=== PATIENT | male | born 1995 | race Caucasian/White ===

== ENCOUNTER 2020-03-13 19:04 | Day surgery (SDC) | payer OTHER ==
--- NOTE | 2020-03-13 19:30 | EDM.PDOC ---
ED HPI GENERAL MEDICAL PROBLEM - General Chief Complaint: Abdominal Pain Stated Complaint: ABDOMINAL PAIN; BACK PAIN; VOMITING Time Seen by Provider: 03/13/20 19:10 Source of Information: Reports: Patient History Limitations: Reports: No Limitations - History of Present Illness INITIAL COMMENTS - FREE TEXT/NARRATIVE: Sarthak comes into [facility] ED with periumbilical crampy abdominal pain since this am, asociated with loss of appetite, emesis, and malaise. Pain seems to have migrated this evening into the back, but has remained persistent. There are no voiding sxs, no fevers or chills, and no BM today. Oral analgesics have been ineffective. - Related Data Allergies Allergy/AdvReac Type Severity Reaction Status Date / Time shrimp Allergy Swelling Verified 03/13/20 19:18 Home Meds: Home Meds Bismuth Subsalicylate [Pepto Bismol] 15 ml PO ASDIRECTED PRN 03/13/20 [History] Past Medical History - Past Surgical History Musculoskeletal Surgical History: Reports: Arthroscopic Knee Social & Family History - Tobacco Use Tobacco Use Status *Q: Never Tobacco User - Caffeine Use Caffeine Use: Reports: Coffee, Energy Drinks, Soda - Alcohol Use Days Per Week of Alcohol Use: 1 Number of Drinks Per Day: 1 Total Drinks Per Week: 1 - Recreational Drug Use Recreational Drug Use: No ED ROS GENERAL - Review of Systems Review Of Systems: Comprehensive ROS is negative, except as noted in HPI. ED EXAM, GI/ABD - Physical Exam Exam: See Below Exam Limited By: No Limitations General Appearance: Alert, WD/WN, Mild Distress Eyes: Bilateral: Normal Appearance, EOMI Ears: Normal External Exam Nose: Normal Inspection Throat/Mouth: Normal Inspection, Normal Oropharynx Head: Normocephalic Neck: Normal Inspection, Supple, Non-Tender Respiratory/Chest: Lungs Clear Cardiovascular: Regular Rate, Rhythm, No Murmur GI/Abdominal Exam: Soft, No Organomegaly, No Distention, No Mass, Guarding, Rebound, Tender (tenderness with guarding and some rebound overlying McBurneys point; ) (Male) Exam: Deferred Rectal (Males) Exam: Deferred Back Exam: Normal Inspection Extremities: Normal Inspection Neurological: Alert, Oriented, CN II-XII Intact, No Motor/Sensory Deficits Psychiatric: Normal Affect, Normal Mood Skin Exam: Warm, Dry, Intact, Normal Color Lymphatic: No Adenopathy Course - Vital Signs Text/Narrative:: Following assessment, I started an IV in the RUE, and administered D5LR 1L pending results of lab work and diagnostic imaging; Hgb 16,4 gm, WBC 15,800 w L shift, plts adequate; CMP noted mild elevation of AST and ALT, CRP and Lactic a both baseline. The ABd-Pelvic CT wo contrast was consistent with acute appendicitis. Dr Solorio will consult on the case. Last Recorded V/S: Last Vital Signs Temp 36.8 C 03/13/20 19:10 Pulse 94 03/13/20 19:10 Resp 18 03/13/20 19:10 BP 136/78 03/13/20 19:10 Pulse Ox 98 03/13/20 19:10 - Orders/Labs/Meds Orders: Active Orders 24 hr Category Date Time Status Abdomen Pelvis wo Cont [CT] Stat Exams 03/13/20 19:31 Taken UA W/MICROSCOPIC [URIN] Stat Lab 03/13/20 19:22 Ordered Dextrose 5%-Lactated Ringers 1,000 ml Med 03/13/20 19:45 Active IV ASDIRECTED Sodium Chloride 0.9% [Saline Flush] Med 03/13/20 19:32 Active 10 ml FLUSH ASDIRECTED PRN Peripheral IV Insertion Adult [OM.PC] Routine Oth 03/13/20 19:32 Ordered Medication Orders Dextrose/Lactated Ringer's (Dextrose 5%-Lactated Ringers) 1,000 mls @ 500 mls/hr IV ASDIRECTED RUSSELL Last Admin: 03/13/20 19:55 Dose: 500 mls/hr Documented by: KANE Sodium Chloride (Saline Flush) 10 ml FLUSH ASDIRECTED PRN PRN Reason: Keep Vein Open Last Admin: 03/13/20 19:35 Dose: 10 ml Documented by: KANE Labs: Laboratory Tests 03/13/20 03/13/20 03/13/20 Range/Units 19:27 19:32 19:32 WBC 15.8 H (4.5-12.0) X10-3/uL RBC 5.58 (4.30-5.75) x10(6)uL Hgb 16.4 (13.5-17.8) g/dL Hct 48.0 (30.0-51.3) % MCV 86.1 (80-96) fL MCH 29.4 (27.7-33.6) pg MCHC 34.2 (32.2-35.4) g/dL RDW 11.7 (11.5-15.5) % Plt Count 273 (125-369) X10(3)uL MPV 8.2 (7.4-10.4) fL Add Manual Diff Yes Neutrophils % (Manual) 78 (46-82) % Band Neutrophils % 1 (0-6) % Lymphocytes % (Manual) 18 (13-37) % Monocytes % (Manual) 3 L (4-12) % Sodium 139 (135-145) mmol/L Potassium 3.7 (3.5-5.3) mmol/L Chloride 101 (100-110) mmol/L Carbon Dioxide 28 (21-32) mmol/L BUN 14 (7-18) mg/dL Creatinine 1.2 (0.70-1.30) mg/dL Est Cr Clr Drug Dosing 103.29 mL/min Estimated GFR (MDRD) > 60 (>60) BUN/Creatinine Ratio 11.7 (9-20) Glucose 128 H (80-116) mg/dL Lactic Acid (0.4-2.0) mmol/L Calcium 9.5 (8.6-10.2) mg/dL Total Bilirubin 0.6 (0.1-1.3) mg/dL AST 37 H (5-25) IU/L ALT 116 H (12-36) U/L Alkaline Phosphatase 105 (56-112) IU/L C-Reactive Protein (0.5-0.9) mg/dL Total Protein 7.8 (6.0-8.0) g/dL Albumin 4.4 (3.5-5.2) g/dL Globulin 3.4 g/dL Albumin/Globulin Ratio 1.3 SARS-CoV-2 RNA (KIRSTEN) Negative (NEGATIVE) 03/13/20 03/13/20 Range/Units 19:32 19:32 WBC (4.5-12.0) X10-3/uL RBC (4.30-5.75) x10(6)uL Hgb (13.5-17.8) g/dL Hct (30.0-51.3) % MCV (80-96) fL MCH (27.7-33.6) pg MCHC (32.2-35.4) g/dL RDW (11.5-15.5) % Plt Count (125-369) X10(3)uL MPV (7.4-10.4) fL Add Manual Diff Neutrophils % (Manual) (46-82) % Band Neutrophils % (0-6) % Lymphocytes % (Manual) (13-37) % Monocytes % (Manual) (4-12) % Sodium (135-145) mmol/L Potassium (3.5-5.3) mmol/L Chloride (100-110) mmol/L Carbon Dioxide (21-32) mmol/L BUN (7-18) mg/dL Creatinine (0.70-1.30) mg/dL Est Cr Clr Drug Dosing mL/min Estimated GFR (MDRD) (>60) BUN/Creatinine Ratio (9-20) Glucose (80-116) mg/dL Lactic Acid 1.2 (0.4-2.0) mmol/L Calcium (8.6-10.2) mg/dL Total Bilirubin (0.1-1.3) mg/dL AST (5-25) IU/L ALT (12-36) U/L Alkaline Phosphatase (56-112) IU/L C-Reactive Protein < 0.2 L (0.5-0.9) mg/dL Total Protein (6.0-8.0) g/dL Albumin (3.5-5.2) g/dL Globulin g/dL Albumin/Globulin Ratio SARS-CoV-2 RNA (KIRSTEN) (NEGATIVE) Meds: Medications Generic Name Dose Route Start Last Admin Trade Name Freq PRN Reason Stop Dose Admin Dextrose/Lactated Ringer's 1,000 mls @ 500 mls/hr 03/13/20 19:45 03/13/20 19:55 Dextrose 5%-Lactated Ringers IV 500 mls/hr ASDIRECTED RUSSELL Administration Sodium Chloride 10 ml 03/13/20 19:32 03/13/20 19:35 Saline Flush FLUSH 10 ml ASDIRECTED PRN Administration Keep Vein Open Departure - Departure Time of Disposition: 21:00 Disposition: Admitted As Inpatient 65 Condition: Fair Clinical Impression: Appendicitis Qualifiers: Appendicitis type: acute appendicitis Acute appendicitis type: unspecified acute appendicitis type Qualified Code(s): K35.80 - Unspecified acute appendicitis - Discharge Information *PRESCRIPTION DRUG MONITORING PROGRAM REVIEWED*: Not Applicable *COPY OF PRESCRIPTION DRUG MONITORING REPORT IN PATIENT DION: Not Applicable Forms: ED Department Discharge Sepsis Event Note (ED) - Evaluation Sepsis Screening Result: No Definite Risk - Focused Exam Vital Signs: Vital Signs Temp Pulse Resp BP Pulse Ox 03/13/20 19:10 36.8 C 94 18 136/78 98 - Problem List & Annotations (1) Appendicitis SNOMED Code(s): 22642241 Code(s): K37 - UNSPECIFIED APPENDICITIS Status: Acute Current Visit: Yes Annotation/Comment:: Dr Solorio to consult. Qualifiers: Appendicitis type: acute appendicitis Acute appendicitis type: unspecified acute appendicitis type Qualified Code(s): K35.80 - Unspecified acute appendicitis - Problem List Review Problem List Initiated/Reviewed/Updated: Yes - My Orders Last 24 Hours: My Active Orders 03/13/20 19:22 UA W/MICROSCOPIC [URIN] Stat 03/13/20 19:31 Abdomen Pelvis wo Cont [CT] Stat 03/13/20 19:32 Sodium Chloride 0.9% [Saline Flush] 10 ml FLUSH ASDIRECTED PRN Peripheral IV Insertion Adult [OM.PC] Routine 03/13/20 19:45 Dextrose 5%-Lactated Ringers 1,000 ml IV ASDIRECTED - Assessment/Plan Last 24 Hours: My Active Orders 03/13/20 19:22 UA W/MICROSCOPIC [URIN] Stat 03/13/20 19:31 Abdomen Pelvis wo Cont [CT] Stat 03/13/20 19:32 Sodium Chloride 0.9% [Saline Flush] 10 ml FLUSH ASDIRECTED PRN Peripheral IV Insertion Adult [OM.PC] Routine 03/13/20 19:45 Dextrose 5%-Lactated Ringers 1,000 ml IV ASDIRECTED Plan: Follow up with PCP.
[2020-03-13] MEDS ORDERED: Sodium Chloride 0.9% 10 ML Syringe FLUSH PRN (19:32)
[2020-03-13] MEDS ORDERED: Dextrose 5%-Lactated Ringers 1,000 ML IV SCH (19:45)
[2020-03-13] MEDS ORDERED: cefOXitin 2 GM Vial IVPUSH ONE (21:00)
[2020-03-13] MEDS ORDERED: Rocuronium 50 MG/5 ML Vial IV ONE (21:15)
[2020-03-13] MEDS ORDERED: HYDROmorphone 2 MG/ML SDV IV ONE (21:15)
[2020-03-13] MEDS ORDERED: Succinylcholine 200 MG/10 ML MDV IV ONE (21:15)
[2020-03-13] MEDS ORDERED: cefOXitin 1 GM Vial IV ONE (21:15)
[2020-03-13] MEDS ORDERED: Neostigmine Methylsulfate 10 MG/10 ML MDV IVPUSH ONE (21:15)
[2020-03-13] MEDS ORDERED: fentaNYL 100 MCG/2 ML SDV IV ONE (21:15)
[2020-03-13] MEDS ORDERED: Ondansetron 4 MG/2 ML SDV IVPUSH ONE (21:15)
[2020-03-13] MEDS ORDERED: Lidocaine 2% 5 ML SDV INJECT ONE (21:15)
[2020-03-13] MEDS ORDERED: Propofol 200 MG/20 ML SDV IV ONE (21:15)
[2020-03-13] MEDS ORDERED: Dexamethasone 4 MG/ML 5 ML MDV IVPUSH ONE (21:15)
[2020-03-13] MEDS ORDERED: Lactated Ringers 1,000 ML IV ONE (21:15)
[2020-03-13] MEDS ORDERED: Midazolam 1 MG/ML 2 ML SDV IV ONE (21:15)
[2020-03-13] MEDS ORDERED: Glycopyrrolate 0.2 MG/ML 5 ML MDV IV ONE (21:15)
--- NOTE | 2020-03-13 21:28 | PCM.HPR ---
H & P Addendum review - H & P Addendum Review Date of Original H & P: 03/13/20 Date Reviewed: 03/13/20 Time Reviewed: 21:26 Patient was Examined: No Changes (Pt examined, CT reviewed. Findings consistent with acute appendicitis. Will proceed with lap appy. Risks and complications reviewed, consent obtained.)
[2020-03-13] MEDS ORDERED: HYDROmorphone 2 MG/ML SDV IVPUSH PRN (22:47)
[2020-03-13] MEDS ORDERED: Promethazine 25 MG/ML SDV IM PRN (22:47)
--- NOTE | 2020-03-13 22:47 | PCM.OPNOTE ---
- General Post-Op/Procedure Note Date of Surgery/Procedure: 03/13/20 Operative Procedure(s): Lap appy Pre Op Diagnosis: Acute appendicitis Post-Op Diagnosis: Same Primary Surgeon: Brando ROCKWELL in mLs: 10 Complications: None Condition: Good
[2020-03-13] MEDS: Acetaminophen/HYDROcodone 325-5 MG Tab PO PRN (23:35)
[2020-03-14] MEDS: Lactated Ringers 1,000 ML IV SCH ×2 (00:26→08:28)
[2020-03-14] MEDS ORDERED: Ibuprofen 600 MG Tab PO PRN (06:50)
[2020-03-14] MEDS: Acetaminophen/HYDROcodone 325-5 MG Tab PO PRN ×2 (06:59→11:16)
--- NOTE | 2020-03-14 08:16 | OR ---
DATE OF OPERATION: 03/13/2020 SURGEON: Brando Solorio MD PREOPERATIVE DIAGNOSIS: Acute appendicitis. POSTOPERATIVE DIAGNOSIS: Acute appendicitis. PROCEDURE: Laparoscopic appendectomy. ANESTHESIA: General. DESCRIPTION OF PROCEDURE: The patient was brought to the operating room, where general endotracheal anesthesia was administered. His abdomen was clipped, prepped with ChloraPrep and draped sterilely. An infraumbilical incision was made and extended into the peritoneal cavity without difficulty. The Latanya cannulator was introduced and pneumoperitoneum obtained. Table was placed in Trendelenburg position and rotated to the left. An acutely inflamed appendix was visible without perforation. A window was made in the mesoappendix at the base of the appendix and transected at the level of the cecum with an Endo-AMELIE 3.5 mm stapler. Two more applications of the Endo-AMELIE 2.5 mm stapler were used to transect the mesoappendix. There was some pulsatile oozing from the staple line on 2 spots that was controlled with a hemoclip. Appendix was brought out through the umbilical incision. Right lower quadrant was thoroughly inspected and irrigated and return was clear and hemostasis assured. Staple lines were intact. Ports were removed under direct vision and remained hemostatic. Umbilical fascia was closed with [id number] #0 Vicryl. Skin was closed with #4-0 Vicryl subcuticular sutures. Benzoin and Steri-Strips were placed and Band-Aids applied. The patient tolerated the procedure well. Estimated blood loss, 10 mL. He returned to Postanesthesia in stable condition. /[id number] AMBIKA/LANA
== END 2020-03-14 14:25 | disposition home or self-care (01) ==
LOC: FB.ED 19:04 → FB.SDS 21:14 → FB.MS 23:05 → FB.SDS 03-14 14:25
PROVIDERS: ATTEND Surgery
DX: K35.80 Unspecified acute appendicitis (principal); Z91.013 Allergy to seafood; Z01.812 Encounter for preprocedural laboratory examination; Z20.828 Contact with and (suspected) exposure to other viral communicable diseases
CPT/HCPCS: 00840; 36415; 44970; 74176; 80053; 81001; 83605; 85025; 86140; 87635; 88304; 94150; 99283; 99285; A9270; J0330; J0694; J1100; J1170; J2001; J2250; J2405; J2704; J2710; J3010; J3490; J7120; J7121; U0002

== ENCOUNTER 2021-03-02 16:27 | Emergency (ER) | payer OTHER ==
--- NOTE | 2021-03-02 16:59 | EDM.PDOC ---
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 This all occurred today. 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: Reports: Other (see below) (none) - Related Data Allergies Allergy/AdvReac Type Severity Reaction Status Date / Time shrimp Allergy Swelling Verified 03/13/20 19:18 Home Meds: Home Meds buPROPion HCL [Bupropion Xl] 300 mg PO DAILY 03/02/21 [History] Past Medical History - Past Surgical History Musculoskeletal Surgical History: Reports: Arthroscopic Knee Social & Family History - Caffeine Use Caffeine Use: Reports: Coffee, Energy Drinks, Soda Review of Systems - Review of Systems Review Of Systems: See Below Constitutional: Reports: No Symptoms Musculoskeletal: Reports: Joint Pain (R knee), Joint Swelling (R knee) Skin: Reports: No Symptoms Neurological: Reports: No Symptoms ED EXAM, GENERAL - Physical Exam Exam: See Below Exam Limited By: No Limitations General Appearance: Alert, WD/WN, No Apparent Distress Extremities: Normal Range of Motion, Pedal Edema (moderate R knee effusion present), Joint Swelling (R knee), Other (ant/medial joint line tenderness of the R knee. No ligamentous laxity. ). No: No Pedal Edema, Jared's Sign, Limited Range of Motion, Increased Warmth, Redness Neurological: Alert, Oriented, CN II-XII Intact, Normal Cognition, No Motor/Sensory Deficits Psychiatric: Normal Affect, Normal Mood Skin Exam: Warm, Dry, Intact, Normal Color, No Rash Course - Vital Signs Last Recorded V/S: Last Vital Signs Temp 36.3 C 03/02/21 16:41 Pulse 110 H 03/02/21 16:41 Resp 20 03/02/21 16:41 BP 139/94 H 03/02/21 16:41 Pulse Ox 94 L 03/02/21 16:41 Departure - Departure Time of Disposition: 17:05 Disposition: Home, Self-Care 01 Condition: Fair Clinical Impression: Tear of meniscus of right knee Qualifiers: Tear current or old: current Encounter type: initial encounter Meniscus of knee: medial Meniscus tear of knee type: unspecified type Qualified Code(s): S83.241A - Other tear of medial meniscus, current injury, right knee, initial encounter - Discharge Information *PRESCRIPTION DRUG MONITORING PROGRAM REVIEWED*: Not Applicable *COPY OF PRESCRIPTION DRUG MONITORING REPORT IN PATIENT DION: Not Applicable Instructions: Meniscus Tear Referrals: Kristofer Simpson NP [Primary Care Provider] - Additional Instructions: Take ibuprofen and/or acetaminophen as needed for pain relief. Relative rest meaning no excess walking, jumping, etc. Follow up with orthopedics at your earliest opportunity. Sepsis Event Note (ED) - Evaluation Sepsis Screening Result: No Definite Risk - Focused Exam Vital Signs: Vital Signs Temp Pulse Resp BP Pulse Ox 03/02/21 16:41 36.3 C 110 H 20 139/94 H 94 L
== END 2021-03-02 17:15 | disposition home or self-care (01) ==
LOC: FB.ED 16:27
DX: S83.241A Other tear of medial meniscus, current injury, right knee, initial encounter (principal); Z91.013 Allergy to seafood; Z79.899 Other long term (current) drug therapy; W22.8XXA Striking against or struck by other objects, initial encounter
CPT/HCPCS: 99283

== ENCOUNTER 2021-04-09 05:50 | Emergency (ER) | payer OTHER ==
--- NOTE | 2021-04-09 07:20 | EDM.PDOC ---
ED HPI GENERAL MEDICAL PROBLEM - General Chief Complaint: Respiratory Problem Stated Complaint: chest pains Time Seen by Provider: 04/09/21 06:20 Source of Information: Reports: Patient History Limitations: Reports: No Limitations - History of Present Illness INITIAL COMMENTS - FREE TEXT/NARRATIVE: Patient presented to the ED because of left sided chest pain which started last night. The pain is ore of pleuritic type,7-8/10. There is no N/V or dyspnea. He has a h/o pneumothorax whn he was in HS and resolved on it's own,otherwise, he is healthy. L lower anterior chest Pain Score (Numeric/FACES): 7 - Related Data Allergies Allergy/AdvReac Type Severity Reaction Status Date / Time shrimp Allergy Swelling Verified 04/09/21 06:05 Home Meds: Home Meds buPROPion HCL [Bupropion Xl] 300 mg PO DAILY 03/02/21 [History] Past Medical History Psychiatric History: Reports: ADHD - Infectious Disease History Infectious Disease History: Reports: Chicken Pox - Past Surgical History GI Surgical History: Reports: Appendectomy Musculoskeletal Surgical History: Reports: Arthroscopic Knee Other Musculoskeletal Surgeries/Procedures:: R knee x 2 Social & Family History - Family History Family Medical History: No Pertinent Family History - Tobacco Use Tobacco Use Status *Q: Never Tobacco User - Caffeine Use Caffeine Use: Reports: Coffee - Alcohol Use Days Per Week of Alcohol Use: 2 Number of Drinks Per Day: 1 Total Drinks Per Week: 2 - Recreational Drug Use Recreational Drug Use: No ED ROS GENERAL - Review of Systems Review Of Systems: See Below Constitutional: Reports: No Symptoms HEENT: Reports: No Symptoms Respiratory: Reports: No Symptoms Cardiovascular: Reports: Chest Pain Endocrine: Reports: No Symptoms GI/Abdominal: Reports: No Symptoms : Reports: No Symptoms Musculoskeletal: Reports: No Symptoms Skin: Reports: No Symptoms Neurological: Reports: No Symptoms Psychiatric: Reports: No Symptoms ED EXAM, GENERAL - Physical Exam Exam: See Below Exam Limited By: No Limitations General Appearance: Alert, No Apparent Distress Eye Exam: Bilateral Eye: PERRL Ears: Normal External Exam, Normal Canal Nose: Normal Inspection, Normal Mucosa, No Blood Throat/Mouth: Normal Inspection, Normal Lips Head: Atraumatic, Normocephalic Neck: Normal Inspection, Supple, Non-Tender, Full Range of Motion Respiratory/Chest: No Respiratory Distress, Lungs Clear, Normal Breath Sounds, Decreased Breath Sounds, Other (tenderness left rib area) Cardiovascular: Normal Peripheral Pulses, Regular Rate, Rhythm, No Edema, No Gallop, No JVD, No Murmur GI/Abdominal: Normal Bowel Sounds, Soft, Non-Tender, No Organomegaly, No Distention, No Abnormal Bruit, No Mass Back Exam: Normal Inspection, Full Range of Motion Extremities: Normal Inspection, Normal Range of Motion, Non-Tender, No Pedal Edema, Normal Capillary Refill Course - Vital Signs Text/Narrative:: 2V CXR-negative Toradol 60 mg IM x1 Last Recorded V/S: Last Vital Signs Temp 36.3 C 04/09/21 05:52 Pulse 100 04/09/21 05:52 Resp 20 04/09/21 05:52 BP 125/95 H 04/09/21 05:52 Pulse Ox 97 04/09/21 05:52 - Orders/Labs/Meds Orders: Active Orders 24 hr Category Date Time Status Chest 2V [CR] Stat Exams 04/09/21 06:23 Taken Meds: Medications Discontinued Medications Generic Name Dose Route Start Last Admin Trade Name Yandy PRN Reason Stop Dose Admin Ketorolac Tromethamine 60 mg 04/09/21 07:28 Ketorolac 30 Mg/Ml Sdv IM 04/09/21 07:29 NOW STA Departure - Departure Time of Disposition: 07:30 Disposition: Home, Self-Care 01 Condition: Good Clinical Impression: Chest wall pain - Discharge Information Instructions: Nonspecific Chest Pain, Adult, [id number] Referrals: Kristofer Simpson NP [Primary Care Provider] - Forms: ED Department Discharge Additional Instructions: Please read discharge instructions on chest wall pain Apply ice or heat whichever you prefer Take ibuprofen 800 mg with tylenol 1000 mg every 8 hours as needed for pain Follow up as needed Sepsis Event Note (ED) - Evaluation Sepsis Screening Result: No Definite Risk - Focused Exam Vital Signs: Vital Signs Temp Pulse Resp BP Pulse Ox 04/09/21 05:52 36.3 C 100 20 125/95 H 97 - My Orders Last 24 Hours: My Active Orders 04/09/21 06:23 Chest 2V [CR] Stat - Assessment/Plan Last 24 Hours: My Active Orders 04/09/21 06:23 Chest 2V [CR] Stat
[2021-04-09] MEDS ORDERED: Ketorolac 30 MG/ML SDV IM STA (07:28)
== END 2021-04-09 07:45 | disposition home or self-care (01) ==
LOC: FB.ED 05:50
DX: R07.89 Other chest pain (principal); Z91.013 Allergy to seafood
CPT/HCPCS: 71046; 96372; 99284; J1885